=== PATIENT | female | born 1955 | race Hispanic/Latino ===

== ENCOUNTER 2017-05-03 12:04 | Emergency (ER) | payer MEDICARE ==
[2017-05-03 12:14] VITALS: TEMP 98; BMI 36.8
--- NOTE | 2017-05-03 12:20 | ED PDOC ---
Arrival/HPI - General Chief Complaint: Dizziness/Lightheaded Time Seen by Provider: 05/03/17 12:05 Historian: Patient - History of Present Illness Narrative History of Present Illness (Text): 05/03/17 12:30 Desiree Fallon is a 61 year old female, with a past medical history of cholecystectomy, right above knee amputation, and myxoid liposarcoma, presents to the emergency department complaining of room-spinning sensation since waking up today morning. Also reports of nausea, and 1 episode of nbnb vomiting. States she experienced similar symptoms couple of years ago. Denies any headache , chest pain, difficulty breathing, abdominal pain, back pain, urinary symptoms , or any other complaints at this time. 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 - Psychiatric Hx Substance Use: No - Surgical History Hx Cholecystectomy: Yes Other/Comment: Right UTK amputation. - Anesthesia Hx Anesthesia: Yes Family/Social History - Physician Review Nursing Documentation Reviewed: Yes Family/Social History: No Known Family HX Smoking Status: Unknown If Ever Smoked Hx Alcohol Use: No Hx Substance Use: No Allergies/Home Meds Allergies/Adverse Reactions: Allergies No Known Allergies Allergy (Verified 05/03/17 12:12) Home Medications: Home Meds Medication Instructions Recorded Confirmed Gabapentin [Neurontin] 100 mg PO TID 05/03/17 05/03/17 Review of Systems - Physician Review All systems were reviewed & negative as marked: Yes - Review of Systems Constitutional: Normal. absent: Fatigue, Fevers Respiratory: Normal. absent: SOB, Cough, Sputum Cardiovascular: Normal. absent: Chest Pain, Palpitations Gastrointestinal: Nausea, Vomiting. absent: Abdominal Pain, Diarrhea Genitourinary Female: Normal Musculoskeletal: Normal Neurological: Other (room spinning sensation ). absent: Headache Psychiatric: Normal Physical Exam Vital Signs Reviewed: Yes Vital Signs Temp Pulse Resp BP Pulse Ox 05/03/17 14:55 84 16 106/66 98 05/03/17 12:11 98.0 F 98 H 18 123/75 95 Temperature: Afebrile Blood Pressure: Normal Pulse: Regular Respiratory Rate: Normal Appearance: Positive for: Well-Appearing, Non-Toxic, Comfortable Pain Distress: None Mental Status: Positive for: Alert and Oriented X 3 - Systems Exam Head: Present: Atraumatic, Normocephalic Pupils: Present: PERRL Conjunctiva: Present: Normal Mouth: Present: Moist Mucous Membranes Neck: Present: Normal Range of Motion Respiratory/Chest: Present: Clear to Auscultation, Good Air Exchange. No: Respiratory Distress, Accessory Muscle Use Cardiovascular: Present: Regular Rate and Rhythm, Normal S1, S2. No: Murmurs Abdomen: Present: Normal Bowel Sounds. No: Tenderness, Distention, Peritoneal Signs, Rebound Upper Extremity: Present: Normal Inspection. No: Cyanosis, Edema Lower Extremity: Present: Normal Inspection. No: Edema Neurological: Present: GCS=15, CN II-XII Intact, Speech Normal, Motor Func Grossly Intact, Normal Sensory Function Skin: Present: Warm, Dry, Normal Color. No: Rashes Psychiatric: Present: Alert, Oriented x 3, Normal Insight, Normal Concentration Medical Decision Making ED Course and Treatment: 05/03/17 12:36 Impression: A 61 year old female who presents to the emergency department complaining of room-spinning sensation since waking up today. Plan: -- EKG -- Labs, cardiac enzymes -- Meclizine -- Zofran -- IV fluids -- Urinalysis -- Reassess and disposition Progress Notes:supsect peripheral verigo, consider central EKG interpreted by me: NSR @ 90 bpm. No STT wave changes. 05/03/17 14:33 On reevaluation, patient states that symptoms have improved. Offered patient admission for possible MRI, but she states she feels well and wants to be discharged home. Patient is stable for discharge. Advised to present to emergency department for new or worsening symptoms and follow up with PMD within few days. 05/03/17 17:45 - Lab Interpretations Lab Results: 05/03/17 12:45 05/03/17 12:45 Lab Results 05/03/17 12:45: Sodium 137, Potassium 3.8, Chloride 100, Carbon Dioxide 24, Anion Gap 17, BUN 17, Creatinine 0.8, Est GFR ( Amer) > 60, Est GFR (Non- Af Amer) > 60, Random Glucose 136 H, Calcium 9.7, Magnesium 2.0, Total Bilirubin 0.7, AST 52 H, ALT 54, Alkaline Phosphatase 156 H, Lactate Dehydrogenase 425, Total Creatine Kinase 61, Troponin I < 0.01, Total Protein 8.1, Albumin 4.4, Globulin 3.7, Albumin/Globulin Ratio 1.2 05/03/17 12:45: PT 10.9, INR 1.01, APTT 27.0 05/03/17 12:45: WBC 5.6, RBC 5.09, Hgb 15.2, Hct 43.7, MCV 85.9, MCH 29.9, MCHC 34.8, RDW 13.1, Plt Count 170, MPV 10.1, Gran % 85.2 H, Lymph % (Auto) 9.2 L, [place] % (Auto) 4.3, Eos % (Auto) 0.9 L, Baso % (Auto) 0.4, Gran # 4.81, Lymph # 0.5 L, [place] # 0.2, Eos # 0.1, Baso # 0.02 - RAD Interpretation Radiology Orders: 05/03/17 12:21 HEAD W/O CONTRAST [CT] Stat - Medication Orders Current Medication Orders: Discontinued Medications Sodium Chloride (Sodium Chloride 0.9%) 1,000 mls @ 999 mls/hr IV .Q1H1M STA Stop: 05/03/17 13:21 Last Admin: 05/03/17 12:43 Dose: 999 mls/hr Meclizine HCl (Antivert) 50 mg PO STAT STA Stop: 05/03/17 12:22 Last Admin: 05/03/17 12:43 Dose: 50 mg Ondansetron HCl (Zofran Inj) 4 mg IVP STAT STA Stop: 05/03/17 12:22 Last Admin: 05/03/17 12:43 Dose: 4 mg - Scribe Statement The provider has reviewed the documentation as recorded by the Andre Chow Provider Attestation: Provider Scribe Attestation: All medical record entries made by the Scribmadison were at my direction and personally dictated by me. I have reviewed the chart and agree that the record accurately reflects my personal performance of the history, physical exam, medical decision making, and the department course for this patient. I have also personally directed, reviewed, and agree with the discharge instructions and disposition. Disposition/Present on Arrival - Present on Arrival Any Indicators Present on Arrival: No History of DVT/PE: No History of Uncontrolled Diabetes: No Urinary Catheter: No History of Decub. Ulcer: No History Surgical Site Infection Following: None - Disposition Have Diagnosis and Disposition been Completed?: Yes Diagnosis: Vertigo Disposition: HOME/ ROUTINE Disposition Time: 14:20 Condition: STABLE Discharge Instructions (ExitCare): Vertigo (ED) Additional Instructions: please follow up with your doctor. return toer with worsening symptoms or concerns. please see specialist. Prescriptions: Meclizine [Antivert] 25 mg PO Q6 PRN #30 tab PRN Reason: Dizziness Referrals: Shahriar Messer DO [[facility]] - Follow up with primary Jose Ashton MD [Staff Provider] - Follow up with primary
[2017-05-03] MEDS ORDERED: Sodium Chloride 0.9% 1,000 ML IV STA (12:21)
[2017-05-03 13:03] LABS: ADD MANUAL DIFF? NO
[2017-05-03 13:13] LABS: BASO # 0.02 K/mm3 (0.0-2.0); BASO % 0.4 % (0.0-3.0); EOS # 0.1 (0.0-0.7); EOS % 0.9 % (1.5-5.0); GRAN # 4.81 (1.4-6.5); GRAN % 85.2 % (50.0-68.0); HEMATOCRIT 43.7 % (36.0-48.0); LYMPH # 0.5 (1.2-3.4); LYMPH % 9.2 % (22.0-35.0); MEAN CELL VOLUME 85.9 fL (80.0-105.0); MEAN CORPUSCULAR HEMOGLOBIN 29.9 pg (25.0-35.0); MEAN CORPUSCULAR HGB CONC 34.8 g/dl (31.0-37.0); MEAN PLATELET VOLUME 10.1 fl (7.0-11.0); MONO # 0.2 (0.1-0.6); MONO % 4.3 % (1.0-6.0); PLATELET COUNT 170 10^3/uL (120.0-450.0); RED CELL DISTRIBUTION WIDTH 13.1 % (11.5-14.5); WHITE BLOOD COUNT 5.6 10^3/ul (4.5-11.0)
[2017-05-03 13:16] LABS: ALB/GLOB RATIO 1.2 (1.1-1.8); ALKALINE PHOSPHATASE 156 U/L (38-133); ALT/SGPT 54 U/L (7-56); AST/SGOT 52 U/L (15-39); BILIRUBIN,TOTAL 0.7 mg/dL (0.2-1.3); BLOOD UREA NITROGEN 17 mg/dL (7-21); CALCIUM 9.7 mg/dL (8.4-10.5); CARBON DIOXIDE 24 mmol/L (21-33); CHLORIDE 100 mmol/L (98-107); GFR AFRICAN-AMERICAN > 60; GLUCOSE,RANDOM 136 mg/dL (70-110); POTASSIUM 3.8 mmol/L (3.6-5.0); SODIUM 137 mmol/L (132-148); TOTAL PROTEIN 8.1 g/dL (5.8-8.3)
[2017-05-03 13:18] LABS: INR 1.01 (0.93-1.08)
[2017-05-03 13:28] LABS: TROPONIN I < 0.01 ng/mL
--- NOTE | 2017-05-03 14:09 | CT ---
PROCEDURE: CT HEAD WITHOUT CONTRAST. HISTORY: dizziness COMPARISON: None available. TECHNIQUE: Axial computed tomography images were obtained through the head/brain without intravenous contrast. Radiation dose: Total exam DLP = 774 mGy-cm. This CT exam was performed using one or more of the following dose reduction techniques: Automated exposure control, adjustment of the mA and/or kV according to patient size, and/or use of iterative reconstruction technique. FINDINGS: HEMORRHAGE: No intracranial hemorrhage. BRAIN: No mass effect or edema. No atrophy or chronic microvascular ischemic changes. VENTRICLES: Unremarkable. No hydrocephalus. CALVARIUM: Unremarkable. PARANASAL SINUSES: Unremarkable as visualized. No significant inflammatory changes. MASTOID AIR CELLS: Unremarkable as visualized. No inflammatory changes. OTHER FINDINGS: None. IMPRESSION: No acute finding
[2017-05-03 14:56] VITALS: BP 106/66; PULSE 84; RESP 16; O2SAT 98
--- NOTE | 2017-05-04 00:46 | CARD ---
APPROVED REPORT EKG Measurement Heart [id number] <Conclusion> Normal sinus rhythm Cannot rule out Anterior infarct, age undetermined Abnormal ECG
== END 2017-05-03 14:55 | disposition home or self-care (01) ==
LOC: ED 12:04
DX: R42 Dizziness and giddiness (principal); Z89.611 Acquired absence of right leg above knee
CPT/HCPCS: 70450; 80053; 82550; 83615; 83735; 84484; 85025; 85610; 85730; 93005; 96361; 96374; 99283; J2405; J7040

== ENCOUNTER 2017-10-27 09:41 | Day surgery (SDC) | payer MEDICARE ==
[2017-10-22 07:39] VITALS: BMI 38.1
[2017-10-27 10:19] LABS: BASO # 0.04 K/mm3 (0.0-2.0); BASO % 0.9 % (0.0-3.0); EOS # 0.1 (0.0-0.7); EOS % 2.8 % (1.5-5.0); GRAN # 3.34 (1.4-6.5); GRAN % 71.8 % (50.0-68.0); HEMATOCRIT 44.4 % (36.0-48.0); LYMPH # 0.8 (1.2-3.4); LYMPH % 17.2 % (22.0-35.0); MEAN CELL VOLUME 86.7 fl (80.0-105.0); MEAN CORPUSCULAR HEMOGLOBIN 29.9 pg (25.0-35.0); MEAN CORPUSCULAR HGB CONC 34.5 g/dl (31.0-37.0); MEAN PLATELET VOLUME 10.7 fl (7.0-11.0); MONO # 0.3 (0.1-0.6); MONO % 7.3 % (1.0-6.0); RED CELL DISTRIBUTION WIDTH 13.2 % (11.5-14.5); WHITE BLOOD COUNT 4.7 10^3/ul (4.5-11.0)
[2017-10-27 10:28] LABS: BLOOD UREA NITROGEN 18 mg/dL (7-21); CALCIUM 10.1 mg/dL (8.4-10.5); CARBON DIOXIDE 27 mmol/L (21-33); CHLORIDE 103 mmol/L (98-107); GFR AFRICAN-AMERICAN > 60; GLUCOSE,RANDOM 127 mg/dL (70-110); POTASSIUM 3.8 mmol/L (3.6-5.0); SODIUM 141 mmol/L (132-148)
[2017-10-27 10:40] LABS: INR 1.06 (0.93-1.08)
[2017-10-27] MEDS ORDERED: Iodixanol 320 MG/ML 100 ML BOTTLE IV ONE (11:48)
[2017-10-27] MEDS ORDERED: Lidocaine 2% Inj (20ml) ONE (11:48)
[2017-10-27] MEDS ORDERED: Midazolam 2 MG/2 ML VIAL ONE (12:30)
[2017-10-27] MEDS ORDERED: Sodium Chloride 0.45% 1,000 ML IV SCH (14:00)
[2017-10-27 14:32] VITALS: PULSE 79; RESP 18
[2017-10-27 14:41] VITALS: BP 118/65; TEMP 76; O2SAT 97
--- NOTE | 2017-10-27 18:02 | VASCULAR ---
PROCEDURE: Removal of tunneled right internal jugular venous access port. 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 Chronic right IJ port. Needs removal. PHYSICIAN(S): John Paul Bose M.D. TECHNIQUE: The relative risks and indications of the procedure were explained to the patient and consent obtained. The patient was placed supine on the arteriogram table and the right neck and chest prepped and draped usual sterile fashion. Conscious sedation and monitoring were provided throughout the procedure by a nurse. Antibiotics were given prior to the procedure. 1% Xylocaine was used to anesthetize the skin and soft tissues at the port. A 4 cm incision was made. The port was bluntly dissected and removed. The catheter was removed under fluoroscopic guidance. No retained catheter fragments were seen. The pocket was lavaged with normal saline. The pocket was closed in 2 layers. The patient tolerated the procedure well. IMPRESSION: 1. Removal of tunneled right internal jugular venous access port.
== END 2017-10-27 15:05 | disposition home or self-care (01) ==
LOC: SDSVAS 09:41
PROVIDERS: ATTEND Radiology Vascular & Interventional Radiology
DX: Z45.2 Encounter for adjustment and management of vascular access device (principal); Z85.89 Personal history of malignant neoplasm of other organs and systems; Z92.21 Personal history of antineoplastic chemotherapy